=== PATIENT | female | born 1975 | race Caucasian/White ===

== ENCOUNTER 2025-03-25 07:31 | Day surgery (SDC) | payer BC ==
[~2025-03-25] VITALS: Ht 165.1 cm; Wt 78.0 kg
[~2025-03-25 07:31] MED LIST: CYCLOBENZAPRINE10 MG PO; CYTOMEL5 MCG PO; IBLOOD GLUCOSE TEST STRIP 1 EA TEST VI PRN; LACTATED RINGER'S 1,000 ML IV SCH; LEVOTHYROXINE25 MC1 PO; LIDOCAINE HCL 1% 5 ML SDV INJ ONE; MIDAZOLAM HCL 5 MG/5 ML VIAL IV PRN; PHENTERMINE HCL15 MG PO; VENTOLIN HFA18 GM INH; fentaNYL citrate 100 MCG/2 ML VIAL IV PRN
[2025-03-25 07:50] VITALS: BP 122/74
[2025-03-25] MEDS ORDERED: TRETINOIN20 G2 TOP (07:54)
[2025-03-25] MEDS ORDERED: fentaNYL citrate 100 MCG/2 ML VIAL ONE (08:20)
[2025-03-25] MEDS ORDERED: MIDAZOLAM HCL 5 MG/5 ML VIAL ONE (08:21)
--- NOTE | 2025-03-25 09:31 | NUR ---
03/25/25 0931 Celean Manzano 0925: PT ARRIVED TO PACU VIA STRETCHER. PT ON 2L NC. PT RESPONDING TO STIMULI AT THIS TIME. 0930: PT ON RA. PT DENIES PAIN OR NAUSEA AT THIS TIME.
[2025-03-25 10:35] VITALS: BP 97/63
--- NOTE | 2025-03-25 10:35 | NUR ---
PT ARRIVED BACK TO ON RA, AAOX3, ANSWERING QUESTIONS APPROPRIATELY, AND ABLE TO MAKE HER NEEDS KNOWN. PTS SPOUSE IN ROOM UPON HER ARRIVAL. PT REPORTS NAUSEA RESOLVED AND DENIES PAIN WHEN ASKED. VS TAKEN. BP SOFT. IV FLUIDS RESTARTED. NO DRAINAGE FROM RECTUM. REPORT RECEIVED FROM PROFESSOR OF BUSINESS. PT PROVIDED WITH VERBAL AND WRITTEN DISCHARGE EDUCATION. ALL QUESTIONS ANSWERED. PT RESTING WITH EYES CLOSED. BED IN LOW POSITION, WHEELS LOCKED, BILAT RAILS IN PLACE. CALL LIGHT WITHIN PT REACH. ALL QUESTIONS ANSWERED.
--- NOTE | 2025-03-25 11:10 | NUR ---
1110-INTO PTS ROOM FOR REASSESSMENT. BP IMPROVED TO 105/62. IV SL'D. PT CONT TO DENY PAIN OR NAUSEA AND REPORTS OVERALL IMPROVEMENT IN HOW SHE FEELS AND FEELS SHE IS READY TO DISCHARGE HOME. PT ASSISTED IN SITTING UP ON EOB AND DENIES ANY NAUSEA OR DIZZINESS WITH POSITION CHANGE. IV REMOVED. TIP APPEARS INTACT. PRESSURE DRSG APPLIED WITH GAUZE AND COBAN. LEFT TO PULL CAR AROUND TO FRONT.
[2025-03-25 11:15] VITALS: BP 105/62
--- NOTE | 2025-03-25 11:20 | NUR ---
PT DISCHARGED FROM DS VIA WC TO PASSENGER SIDE OF SPOUSES VEHICLE. ALL PERSONAL BELONGINGS TAKEN WITH PT.
--- NOTE | 2025-03-25 13:55 | OR ---
[facility] [address] [place], [place] [address] Signed DATE OF OPERATION: 03/25/2025 SURGEON: Dorian Navarro MD PREOPERATIVE DIAGNOSIS: Colon screening. POSTOPERATIVE DIAGNOSIS: Normal colon to cecum. PROCEDURE: Total colonoscopy to cecum. ANESTHESIA: Intravenous sedation fentanyl 200 mcg and Versed 10 mg. 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 She has no current symptoms of bleeding, diarrhea or constipation and no family history of colon cancer. She understands the risk of colonoscopy including but not limited to bleeding, infection, and perforation and wished to proceed. FINDINGS: The patient was somewhat tolerant to her medications, though her medical list of medications would not be suspect for that. In any case, complete colonoscopy was undertaken to the cecum without question showing a good prep and no evidence of abnormality. DESCRIPTION OF PROCEDURE: The patient was brought to the endoscopy suite and placed in lateral decubitus position, given intravenous sedation to the point of slurred speech and nystagmus. Full cardiopulmonary monitoring was maintained. Digital rectal examination was normal. An Olympus video colonoscope was passed in the rectum and manipulated throughout the colon ultimately intubating the cecum itself. Sequential addition of sedative medications was required due to patient tolerance tissues. Ultimately, the cecum was intubated. The ileocecal valve and appendiceal orifice were normal. Scope was withdrawn and examination throughout showed no sign of abnormality specifically no polyps, diverticular formation, colitis, or cancer. Retroflexed view of the rectum was Electronically Signed By: DORIAN NAVARRO MD 03/25/25 1355 PATIENT NAME: BJ SANTANA OPERATIVE REPORT DATE OF : 79 REPORT #: [id number] PHYSICIAN: DORIAN NAVARRO MD PCP: ALMA MORILLO MD REPORT IS CONFIDENTIAL AND NOT TO BE RELEASED WITHOUT AUTHORIZATION [facility] [address] [place] [id number] Signed normal. The scope was removed and the patient was taken to recovery room in good condition having suffered no complication. CONCLUDING DIAGNOSIS: Normal colon to cecum. PLAN: Recommend repeat colonoscopy in 10 years, sooner if symptoms should develop. She will return to the ongoing care of Amilcar Scott NP and Alihsa Chavez DO. MD JAYDEN Donald/MODL /[id number] cc: DO Amilcar Draper NP Copies: ~ Electronically Signed By: DORIAN NAVARRO MD 03/25/25 1355 PATIENT NAME: BJ SANTANA OPERATIVE REPORT DATE OF : 79 REPORT #: [id number] PHYSICIAN: DORIAN NAVARRO MD PCP: ALMA MORILLO MD REPORT IS CONFIDENTIAL AND NOT TO BE RELEASED WITHOUT AUTHORIZATION
== END 2025-03-25 11:20 | disposition home or self-care (01) ==
LOC: DS 07:31
PROVIDERS: ATTEND Surgery
PROC: 0DJD8ZZ Inspection of Lower Intestinal Tract, Via Natural or Artificial Opening Endoscopic (ICD-10-PCS; principal; 2025-03-25 08:20)
DX: Z12.11 Encounter for screening for malignant neoplasm of colon (principal); E03.9 Hypothyroidism, unspecified
CPT/HCPCS: 84703; 99153; G0500; J1790; J2250; J3010; J7121